=== PATIENT | female | born 1990 | race Caucasian/White ===

== ENCOUNTER 2023-01-09 09:43 | Outpatient (CLI) | payer OTHER ==
[2023-01-09 14:25] LABS: BASOPHILS # (AUTO) 0.1 10^3/uL (0.0-0.1); EOSINOPHILS # (AUTO) 0.1 10^3/uL (0.0-0.7); EOSINOPHILS % (AUTO) 2.2 %; HCT - HEMATOCRIT 40.6 % (37.0-47.0); HGB - HEMOGLOBIN 13.5 g/dL (12.0-16.0); LYMPHOCYTES # (AUTO) 1.7 10^3/uL (1.5-3.5); LYMPHOCYTES % (AUTO) 34.6 %; MEAN CORPUSCULAR HEMOGLOBIN 32.6 pg (27.0-31.0); MEAN CORPUSCULAR HGB CONC 33.3 g/dL (32.0-36.0); MEAN CORPUSCULAR VOLUME 98.1 fL (81.0-99.0); MEAN PLATELET VOLUME 9.3 fL (7.9-10.8); MONOCYTES # (AUTO) 0.5 10^3/uL (0.0-1.0); MONOCYTES % (AUTO) 9.8 %; NEUTROPHILS # (AUTO) 2.6 10^3/uL (1.5-6.6); NEUTROPHILS % (AUTO) 52.2 %; PLT - PLATELET COUNT 355 10^3/uL (130-450); RED BLOOD COUNT 4.14 10^6/uL (4.20-5.40); RED CELL DISTRIBUTION WIDTH 12.7 % (12.0-15.0); WHITE BLOOD COUNT 4.9 x10^3/uL (4.8-10.8)
[2023-01-09 14:51] LABS: ALBUMIN 4.6 g/dL (3.2-5.5); ALBUMIN/GLOBULIN RATIO 1.8 (1.0-2.2); ALKALINE PHOSPHATASE 65 IU/L (42-121); ALT ALANINE AMINOTRANSFERASE 37 IU/L (10-60); AST ASPARTATE AMINOTRANSFERASE 23 IU/L (10-42); BILIRUBIN,TOTAL 0.5 mg/dL (0.2-1.0); BUN - BLOOD UREA NITROGEN 12 mg/dL (6-20); CALCIUM 9.5 mg/dL (8.5-10.3); CARBON DIOXIDE - CO2 27 mmol/L (21-32); CHLORIDE 105 mmol/L (101-111); CHOL/HDL RATIO 2.7 (<4.4); CHOLESTEROL 146 mg/dL; CREATININE 0.7 mg/dL (0.6-1.3); GFR - MDRD 97 (>89); GLUCOSE 89 mg/dL (74-104); HDL CHOLESTEROL 55 mg/dL; LDL CHOLESTEROL,CALCULATED 74 mg/dL; LDL/HDL RATIO 1.3 (<4.4); POTASSIUM 4.3 mmol/L (3.5-4.5); SODIUM 136 mmol/L (135-145); TOTAL PROTEIN 7.1 g/dL (6.4-8.9); TRIGLYCERIDES 84 mg/dL (48-352); VLDL CHOLESTEROL 17 mg/dL
[2023-01-09 14:55] LABS: THYROID STIMULATING HORMONE 1.16 uIU/mL (0.34-5.60)
== END 2023-01-09 09:44 | disposition home or self-care (01) ==
LOC: LAB.S 09:43
PROVIDERS: ATTEND Nurse Practitioner Acute Care
DX: Z79.899 Other long term (current) drug therapy (principal); Z13.220 Encounter for screening for lipoid disorders; Z13.228 Encounter for screening for other metabolic disorders; Z13.0 Encounter for screening for diseases of the blood and blood-forming organs and certain disorders involving the immune mechanism
CPT/HCPCS: 36415; 80053; 80061; 83721; 84443; 85025

== ENCOUNTER 2024-01-14 08:00 | Outpatient (CLI) | payer OTHER ==
[2024-01-14 16:36] LABS: BILIRUBIN,URINE NEGATIVE (NEGATIVE); GLUCOSE, URINE (UA) NEGATIVE (NEGATIVE); KETONES,URINE (UA) NEGATIVE (NEGATIVE); LEUKOCYTE ESTERASE, URINE NEGATIVE (NEGATIVE); NITRITE,URINE NEGATIVE (NEGATIVE); OCCULT BLOOD,URINE NEGATIVE (NEGATIVE); PH,URINE 5.5 PH (5.0-7.5); PROTEIN,URINE NEGATIVE (NEGATIVE); UROBILINOGEN,URINE 0.2 (NORMAL) E.U./dL (NORMAL)
[2024-01-14 16:39] LABS: CLARITY,URINE CLOUDY (CLEAR)
[2024-01-14 16:49] LABS: AMORPHOUS SEDIMENT,UR Marked /LPF; BACTERIA,URINE None Seen /HPF (None Seen); RBC,URINE None Seen /HPF (0-5); SQUAMOUS EPITHELIAL CELL,UR NONE SEEN (<= Few); WBC,URINE 0-3 /HPF (0-5)
== END 2024-01-14 23:59 | disposition home or self-care (01) ==
LOC: LAB.WC 08:00
PROVIDERS: ATTEND Obstetrics & Gynecology
DX: Z34.00 Encounter for supervision of normal first pregnancy, unspecified trimester (principal)
CPT/HCPCS: 81001; 87086

== ENCOUNTER 2024-01-28 20:53 | Outpatient (CLI) | payer OTHER ==
--- NOTE | 2024-01-29 17:24 | Ultrasound Report ---
PROCEDURE: OB 1st Trimester INDICATIONS: POSITIVE TEST OUTSIDE/PRIOR DATING DATA: Last menstrual period (LMP): 11/07/2023. LMP-based estimated date of delivery (JACKELYN): 08/21/2024. First dating scan (date and location): 01/28/2024. Estimated date of delivery (JACKELYN) from first dating scan: 08/24/2024. TECHNIQUE: Real-time scanning was performed of the fetus and maternal pelvic organs, with image documentation. COMPARISON: None. FINDINGS: Uterus is anteverted. The cervix is closed. An intrauterine gestational sac contains a pole and yolk sac. [place]-rump length measures 32.4 mm corresponding to a 10 week 1 day +/- 6 day gestation. T here is detectable cardiac activity at a rate of 176 bpm. Normal yolk sac. Trace subchorionic hemorrhage is seen, presumably an implantation bleed. Ovaries are normal. No free fluid in the pelvis. IMPRESSION: A single living intrauterine with a gestational age by ultrasound of 10 weeks 1 day and son ographic due date of 08/24/2024, consistent with clinical dates. Closed cervix and trace subchorionic fluid. Reviewed by: Alethea Perry MD on 01/29/2024 5:23 PM PDT Approved by: Alethea Perry MD on 01/29/2024 5:23 PM PDT Station ID: [id number]
== END 2024-01-28 20:54 | disposition home or self-care (01) ==
LOC: DI 20:53
PROVIDERS: ATTEND Obstetrics & Gynecology
DX: Z34.01 Encounter for supervision of normal first pregnancy, first trimester (principal)

== ENCOUNTER 2024-02-14 15:42 | Outpatient (CLI) | payer OTHER ==
[2024-02-14 16:10] LABS: BASOPHILS % (AUTO) 0.5 %; EOSINOPHILS # (AUTO) 0.1 10^3/uL (0.0-0.7); EOSINOPHILS % (AUTO) 1.7 %; HCT - HEMATOCRIT 34.9 % (37.0-47.0); HGB - HEMOGLOBIN 12.2 g/dL (12.0-16.0); LYMPHOCYTES # (AUTO) 1.6 10^3/uL (1.5-3.5); LYMPHOCYTES % (AUTO) 24.3 %; MEAN CORPUSCULAR HEMOGLOBIN 32.4 pg (27.0-31.0); MEAN CORPUSCULAR VOLUME 92.8 fL (81.0-99.0); MEAN PLATELET VOLUME 8.7 fL (7.9-10.8); MONOCYTES # (AUTO) 0.5 10^3/uL (0.0-1.0); NEUTROPHILS # (AUTO) 4.3 10^3/uL (1.5-6.6); NEUTROPHILS % (AUTO) 66.3 %; PLT - PLATELET COUNT 298 10^3/uL (130-450); RED BLOOD COUNT 3.76 10^6/uL (4.20-5.40); RED CELL DISTRIBUTION WIDTH 11.9 % (12.0-15.0); WHITE BLOOD COUNT 6.4 x10^3/uL (4.8-10.8)
[2024-02-14 16:25] LABS: ALBUMIN 4.3 g/dL (3.2-5.5); ALBUMIN/GLOBULIN RATIO 1.5 (1.0-2.2); BILIRUBIN,TOTAL 0.3 mg/dL (0.2-1.0); CALCIUM 9.5 mg/dL (8.5-10.3); CREATININE 0.5 mg/dL (0.6-1.3); POTASSIUM 3.8 mmol/L (3.5-4.5); TOTAL PROTEIN 7.1 g/dL (6.4-8.9)
[2024-02-14 20:26] LABS: ESTIMATED AVERAGE GLUCOSE 77 mg/dL (70-100); HEMOGLOBIN A1c% 4.3 % (4.27-6.07)
[2024-02-14 22:12] LABS: CHLAMYDIA TRACHOMATIS DNA NEGATIVE (NEGATIVE); NEISSERIA GONORRHOEAE DNA NEGATIVE (NEGATIVE); TRICHOMONAS VAGINALIS DNA NEGATIVE (NEGATIVE)
[2024-02-15 05:12] LABS: HBsAG SCREEN Negative (Negative); HIV SCREEN 4TH GENERATION Non Reactive (Non Reactive)
[2024-02-15 09:09] LABS: RPR Non Reactive (Non Reactive); VARICELLA-ZOSTER AB IGG Reactive (Non Reactive)
[2024-02-16 03:38] LABS: HCV AB Non Reactive (Non Reactive)
== END 2024-02-14 15:43 | disposition home or self-care (01) ==
LOC: LAB 15:42
PROVIDERS: ATTEND Obstetrics & Gynecology
DX: Z34.00 Encounter for supervision of normal first pregnancy, unspecified trimester (principal); Z36.89 Encounter for other specified antenatal screening
CPT/HCPCS: 36415; 80053; 83036; 85025; 86592; 86762; 86787; 86803; 86850; 86900; 86901; 87340; 87389; 87491; 87591; 87661

== ENCOUNTER 2024-08-25 20:06 | Inpatient (IN) ==
[2024-08-25] MEDS ORDERED: METHYLERGONOVINE 0.2 MG/ML VIAL IM PRN (21:34)
[2024-08-25] MEDS ORDERED: SODIUM CHLORIDE FLUSH 0.9% 10 ML SYRINGE IVP PRN (21:34)
[2024-08-25] MEDS ORDERED: hydrALAZINE INJ 20 MG/ML VIAL IVP PRN ×2 (21:34)
[2024-08-25] MEDS ORDERED: NIFEdipine 10 MG CAPSULE PO PRN (21:34)
[2024-08-25] MEDS ORDERED: CARBOPROST TROMETHAMINE 250 MCG/ML VIAL IM PRN (21:34)
[2024-08-25] MEDS ORDERED: OXYTOCIN 10 UNIT/ML VIAL IM PRN (21:34)
[2024-08-25] MEDS ORDERED: LABETALOL 20 MG/4 ML SYRINGE IVP PRN ×3 (21:34)
--- NOTE | 2024-08-25 21:42 | HISTORY & PHYSICAL EXAMINATION ---
Admit History Smoking Status: Never smoker Meds/Allgy Home Medications Ambulatory Orders Medication Instructions Recorded Confirmed vits no.126-ferrous fum 1 tab PO QDAY 03/16/24 08/25/24 28 mg iron-folic acid 800 mcg tablet (Classic ) breast pump #1 ea 06/02/24 08/25/24 Allergies Allergies Allergy/AdvReac Type Severity Reaction Status Date / Time No Known Drug Allergies Allergy Verified 08/25/24 14:05 PFSH Active Problems All Active Problems (Updated 06/02/24 @ 22:38 by Jayde Aguilar, FABRICIO, MUSEUM HOST/HOSTESS) Supervision of normal first in third trimester (Acute) Dysplasia of cervix, low grade (ROSLYN 1) (Acute) Social History Social History (Updated 03/16/24 @ 09:28 by Monisha De LPN) Smoking Status: Never smoker Second hand tobacco smoke exposure: No Do you dip or chew tobacco?: No Do you vape?: No ETOH Use: None Substance Use: denies use Plan for Labor Plan For Labor I expect patient to be DC'd or transferred within 96 hours.: Yes Plan for Labor: Reny is a 33yo @ 40.4wks gestation by LMP c/w 10wk U/S who presents to [facility] for medical induction of labor with pre-induction cervical ripening secondary to new onset gestational hypertension. She has been a patient of [facility] for the duration of her which has remained uncomplicated with the exception of this new diagnosis. She had received consistent care. She denies headaches, visual disturbances, RUQ or epigastric pain. She has felt occasional cramping throughout the day yesterday and today but denies consistent contractions. She denies vaginal bleeding or leakage of fluid and reports +FM. Upon arrival cervix is 2-3/70/-3 and vertex with intact membranes. She will be admitted for observation to [facility] with cervical ripening balloon placement. She is supported by her Daniele today. Dating criteria: LMP: 11/15/2023 JACKELYN by LMP: 08/21/2024 US:01/28/24 @ 10+1 c/w LMP (08/24/24) Final JACKELYN: 08/21/2024 FOB: Daniele Sex: IT's A BOY!!! Allergies: NKDA RX: [facility] Hx: Hx of ROSLYN-1 FMHX: No significant Surgical: No significant Social: Daniele. No ETOH or IVDA. Never smoker. Pre- Weight: 158 BMI: 26.52 Blood type: O+ Antibody: Negative CBC: H/H 12.2/34.9 plt 298 RUB:immune VZV:immune HBsAg: Negative HepC: NR RPR/AB-EIA:NR HIV:NR PAP:02/24/2023 ASCUS HPV+, COLPO CIN1, DUE Nov03/2024- wants to complete GC/CT: Negative HSV: denies self and partner Genetic testing: NIPT- Negative Covid:decline Flu:decline FAS:04/14/2024 Placenta:posterior Cord: 3VC YANETH: 16.4cm EFW: 457g 50gm OGCT: 116 a1c 9/27- 4.3 TDAP: 06/02/2024 Breast Pump: 06/02/2024 GBS: negative Delivery plan: Desires epidural for pain management, hoping to labor some without, . MOD: Anticipate Physical exam: Normocephalic, atraumatic Heart RRR w/o M/G/R Lungs CTAB Abdomen gravid, soft, nontender FHR baseline 150s, moderate variability, + accels, no decels Contractions palpate mild intermittently with soft resting tone SVE 2-3/70/-3 and vertex with intact membranes. Cervical ripening balloon placed with 80cc in uterine balloon and 80cc vaginal balloon Pt tolerated placement well. Bilateral LE's trace edema. Mood is good. Assessment: 33yo @ 40.4wks gestation by LMP c/w 10wk U/S Gestational hypertension FHR Category I GBS negative Plan: Admit to [facility] for observation. Cervical ripening balloon x 12hrs. AROM vs misoprostol in 12hrs or sooner with spontaneous expulsion. Intermittent FHR monitoring with NST q 4hrs. Jaccuzi PRN. Nitrous oxide PRN. Anticipate .
--- OUTSIDE RECORDS SUMMARY | 2024-08-25 21:43 | EXTERNAL MEDICAL SUMMARY RPT | Continuity of Care Document ---
Author Organization [facility] Address [address] [place] [phone] Phone Problems date description facility 2024-06-03 00:02 [facility] 2024-06-03 00:02 Encounter for superv ision of normal first , third trimester [facility] 2024-07-23 10:25 Encounter for test, r esult positive [facility] 2024-07-23 10:25 Encounter for superv ision of normal first , unspecified trimester [facility] 2024-08-06 15:24 Encounter for superv ision of normal first , third trimester [facility] 2024-08-06 15:24 Encounter for screeni ng for Streptococcus B [facility] 2024-08-07 00:02 Encounter for superv ision of normal first , third trimester [facility] 2024-08-07 00:02 Encounter for screeni ng for Streptococcus B [facility] 2024-08-07 00:04 Encounter for superv ision of normal first , third trimester [facility] 2024-08-07 00:04 Encounter for screeni ng for Streptococcus B [facility] 2024-08-10 08:39 Encounter for superv ision of normal first , third trimester [facility] Results/Labs test date facility value unit notes Result panel 1 GROUP B STREP PCR 2024-08-06 14:00 [employer] NEGATIVE (missing) (missing) Social History date description facility
[2024-08-25 22:32] LABS: BASOPHILS # (AUTO) 0.1 10^3/uL (0.0-0.1); BASOPHILS % (AUTO) 0.5 %; EOSINOPHILS # (AUTO) 0.2 10^3/uL (0.0-0.7); EOSINOPHILS % (AUTO) 1.6 %; HGB - HEMOGLOBIN 12.4 g/dL (12.0-16.0); LYMPHOCYTES # (AUTO) 1.5 10^3/uL (1.5-3.5); LYMPHOCYTES % (AUTO) 16.5 %; MEAN CORPUSCULAR HEMOGLOBIN 33.1 pg (27.0-31.0); MEAN CORPUSCULAR HGB CONC 34.4 g/dL (32.0-36.0); MEAN PLATELET VOLUME 9.5 fL (7.9-10.8); MONOCYTES # (AUTO) 0.9 10^3/uL (0.0-1.0); MONOCYTES % (AUTO) 9.6 %; NEUTROPHILS # (AUTO) 6.7 10^3/uL (1.5-6.6); NEUTROPHILS % (AUTO) 71.6 %; PLT - PLATELET COUNT 285 10^3/uL (130-450); RED BLOOD COUNT 3.75 10^6/uL (4.20-5.40); RED CELL DISTRIBUTION WIDTH 12.5 % (12.0-15.0); WHITE BLOOD COUNT 9.3 x10^3/uL (4.8-10.8)
[2024-08-25 22:38] LABS: CREATININE,URINE 54.2 mg/dL; PROTEIN/CREATININE RATIO,URINE 0.2 (<=0.2)
[2024-08-25 22:42] LABS: ALBUMIN/GLOBULIN RATIO 1.4 (1.0-2.2); BILIRUBIN,TOTAL 0.3 mg/dL (0.2-1.0); CALCIUM 9.5 mg/dL (8.5-10.3); CREATININE 0.8 mg/dL (0.6-1.3); POTASSIUM 3.7 mmol/L (3.5-4.5); TOTAL PROTEIN 6.9 g/dL (6.4-8.9)
[2024-08-26] MEDS: LACTATED RINGERS 1,000 ML IV PRN ×2 (04:25→05:04)
[2024-08-26] MEDS: SODIUM CHLORIDE FLUSH 0.9% 10 ML SYRINGE IVP SCH (05:05)
[2024-08-26] MEDS ORDERED: LIDOCAINE 2%-EPI 1:100000 20 ML MDV ONE (05:23)
[2024-08-26] MEDS ORDERED: ROPIVACAINE 0.2% 200 MG/100 ML BAG EP ONE (05:23)
[2024-08-26] MEDS ORDERED: NALBUPHINE 10 MG/ML AMP IVP PRN (06:30)
[2024-08-26] MEDS ORDERED: LACTATED RINGERS 500 ML IV ONE (06:30)
[2024-08-26] MEDS ORDERED: ePHEDrine 50 MG/ML VIAL IVP PRN (06:30)
[2024-08-26] MEDS ORDERED: METOCLOPRAMIDE 10 MG/2 ML VIAL IVP PRN (06:30)
[2024-08-26] MEDS ORDERED: NALOXONE 0.4 MG/ML VIAL IVP PRN (06:30)
[2024-08-26] MEDS ORDERED: diphenhydrAMINE INJ 50 MG/ML VIAL IVP PRN (06:30)
--- NOTE | 2024-08-26 06:31 | ANESTHESIA PROCEDURE NOTE ---
Pre-Anesthesia VS, & Labs Diagnosis Surgical Diagnosis:: 40.4 weeks Procedure Procedure: placement of labor epidural Vitals Vital Signs: Pulse Resp 81 16 08/25/24 21:41 08/25/24 21:41 Height (in): 5 ft 5 in Weight (kg): 92 kg Body Mass Index: 33.7 BMI Classification: Obese NPO Last Fluid Intake: taking clears Is Patient ?: Yes Estimated Due Date:: 08/26/24 Lab Results Current Lab Results: Laboratory Tests 08/25/24 22:19: WBC 9.3, RBC 3.75 L, Hgb 12.4, Hct 36.0 L, MCV 96.0, MCH 33.1 H, MCHC 34.4, RDW 12.5, Plt Count 285, MPV 9.5, Neut # (Auto) 6.7 H, Lymph # (Auto) 1.5, Bland # (Auto) 0.9, Eos # (Auto) 0.2, Baso # (Auto) 0.1, Absolute Nucleated RBC 0.00, Nucleated RBC % 0.0, Sodium 137, Potassium 3.7, Chloride 104, Carbon Dioxide 24, Anion Gap 9.0, BUN 11, Creatinine 0.8, Estimated GFR (MDRD) 83 L, Glucose 83, Calcium 9.5, Total Bilirubin 0.3, AST 14, ALT 11, Alkaline Phosphatase 117, Total Protein 6.9, Albumin 4.0, Globulin 2.9, Albumin/Globulin Ratio 1.4, Blood Type O POSITIVE, Antibody Screen NEGATIVE Lab results reviewed: Yes 08/25/24 22:19 08/25/24 22:19 Meds/Allgy Home Medications Ambulatory Orders Medication Instructions Recorded Confirmed vits no.126-ferrous fum 1 tab PO QDAY 03/16/24 08/25/24 28 mg iron-folic acid 800 mcg tablet (Classic ) breast pump #1 ea 06/02/24 08/25/24 Allergies Allergies Allergy/AdvReac Type Severity Reaction Status Date / Time No Known Drug Allergies Allergy Verified 08/25/24 14:05 PFSH Active Problems All Active Problems (Updated 06/02/24 @ 22:38 by Jayde Aguilar, CNM, CAR EXAMINER) Supervision of normal first in third trimester (Acute) Dysplasia of cervix, low grade (ROSLYN 1) (Acute) Social History Social History (Updated 03/16/24 @ 09:28 by Monisha De LPN) Smoking Status: Never smoker Second hand tobacco smoke exposure: No Do you dip or chew tobacco?: No Do you vape?: No ETOH Use: None Substance Use: denies use Anesthesia Exam (Expanded) Exam General: Alert and Mild distress Dental: WNL Mouth Openin Fingerbreadth Neck Mobility: Normal Mallampati classification: II Thyromental Distance: 4-6 cm Plan Plan Anesthesia Type: Epidural Consent for Procedure(s) Verified and Reviewed: Yes Code Status: Attempt Resuscitation ASA Classification ASA classification: 2-Mild systemic disease Is this case an emergency?: No
--- NOTE | 2024-08-26 06:41 | PROVIDER PROGRESS NOTE ---
Labor Progress Note Labor Progress Note Labor Progress Note/Additional Text: S: Feeling improved after epidural placement. She was not able to get much rest last night due to increasing intensity of contractions. She still has quite a bit of movement in her lower extremeties and was able to feel the cervical exam but is hoping with a little more time the epidural will improve this. She is no longer feeling discomfort with contractions. O: Cervical ripening balloon spontaneously expelled after 2 hours of placement and immediately followed by SROM which was noted to be a moderate amount of clear fluid. FHR baseline 140s, moderate variability, + accels, no decels Contractions palpate strong every 4-5 minutes with soft resting tone SVE 6-7/90/-1, Vertex Continues to leak clear amniotic fluid. Pre-eclampsia labs neg/WNL A: 33yo @ 40.5wks gestation by LMP c/w 10wk U/S Gestational hypertension Active labor FHR Category I GBS negative P: Continue expectant management. Maintain epidural for pain management. Rotation in bed on peanut ball. Continuous monitoring. Anticipate .
--- NOTE | 2024-08-26 11:15 | PROVIDER PROGRESS NOTE ---
Labor Progress Note Labor Progress Note Labor Progress Note/Additional Text: S: Pt comfortable with epidural. She has been able to rest for a couple of hours which she needed. She states the epidural is continuing to work well for her. She denies GAYTAN, visual disturbances, RUQ or epigastric pain. Her is marquez pportive at the bedside O: FHR baseline 150, moderate variability, + accels, no decels Contractions palpate moderate every 5 minutes with soft resting tone SVE 7/90/-1 and vertex. Cervix mildly edematous. A: 33yo @ 40.5wks gestation Active labor Gestational HTN FHR Category I GBS negative P: Initiate pitocin for augmentation of labor with titration per protocol. Continuous monitoring. Benadryl IVP for cervical edema Encouraged position changes in bed on peanut ball. Anticipate .
[2024-08-26] MEDS: diphenhydrAMINE INJ 50 MG/ML VIAL IVP ONE (11:24)
[2024-08-26] MEDS: OXYTOCIN/SODIUM CHLORIDE 500 ML IV SCH (11:30)
--- NOTE | 2024-08-26 11:53 | PHARMACY PROGRESS NOTE ---
Best Possible Medication History Admit Date and Time: 08/25/24 2134 Home Medications Medication Instructions Recorded Confirmed Type vits no.126-ferrous fum 1 tab PO QDAY 03/16/24 08/26/24 History 28 mg iron-folic acid 800 mcg tablet (Classic ) breast pump #1 ea 06/02/24 08/25/24 Rx Processed by: Pharmacy (Medication reconciliation completed by Human Services AssistantAdin) Medications reviewed in ED?: No Medication History completed: Yes Patient Interview: Completed Secondary Source(s): Insurance records [facility] Statement: As the person ultimately responsible for medication therapy, providers are able to order a medication from an existing home medication list in [facility] via the "Reconcile Routine" prior to Confirmation of that medication by arch support maker. Such practice is discouraged except when the physician, in their clinical judgment, deems that a medical need exists for a medication without regard to previous use.
[2024-08-26] MEDS: ROPIVACAINE 0.2% 200 MG/100 ML BAG EP PRN (13:24)
[2024-08-26] MEDS: ONDANSETRON 4 MG/2 ML VIAL IVP PRN (15:39)
[2024-08-26] MEDS: lidocaine 1% 20 ML MDV ID PRN (19:00)
[2024-08-26] MEDS: TRANEXAMIC ACID IN NACL 1,000 MG/100 ML BAG IV PRN (19:20)
[2024-08-26] MEDS: miSOPROStoL 200 MCG TABLET BC PRN (19:35)
[2024-08-26] MEDS: OXYTOCIN/SODIUM CHLORIDE 500 ML IV PRN (20:11)
[2024-08-26] MEDS: ACETAMINOPHEN 500 MG TABLET PO PRN (21:14)
[2024-08-26] MEDS ORDERED: SIMETHICONE CHEW 80 MG TABLET PO PRN (21:14)
[2024-08-26] MEDS ORDERED: OXYTOCIN/SODIUM CHLORIDE 500 ML IV PRN (21:14)
[2024-08-26] MEDS: IBUPROFEN 800 MG TABLET PO PRN (21:14)
--- NOTE | 2024-08-26 21:23 | DELIVERY NOTE ---
Delivery Note Delivery Comments (Free Text/Narrative) Delivery Comments (Free Text/Narrative): Labor: This 33yo @ 40.5wks gestation by LMP c/w first trimester ultrasound presented to [facility] on 08/25/2024 for medical induction of labor secondary to gestational hypertension. Cervix was 2/70/-2 and vertex. Maria cervical ripening balloon placed and was spontaneously expelled after 2 hours and was following shortly by SROM which occurred on 08/26/2023 @ 2320 and was noted to be a moderate amount of clear fluid. FHR demonstrated Category I pattern throughout labor. Normal labor course. Epidural placed per maternal request. Pitocin initiated for augmentation of labor with a maximum infusion rate of 16mU/min. She progressed to c/c/0 at 1548. : Normal SVB of viable male infant on 08/26/2024 @ 1913. No nuchal cord. 40 second body dystocia. The was placed on maternal abdomen, stimulated, dr ied, and placed skin to skin. 's were 5/9 at 1 and 5 min respectively. Pitocin administered via IV for hemostasis. The umbilical cord was allowed to stop pulsating at which time it was doubly clamped by CNM and cut by FOB. Cord blood was obtained. 3VC. Fundal massage and gentle cord traction applied for active management of the third stage. Placenta delivered spontaneously and intact at 1923. Pt was noted to have increased rate of vaginal bleeding initially and in addition to pitocin she received 800mcg rectal misoprostol and TXA for management. Rate of bleeding improved following treatment. QBL 954mL. Fourth stage: Uterine fundus firm and there is no excessive bleeding. The perineum, vagina, and cervix were inspected and found to have a 2nd degree vaginal laceration which was repaired using a 2-[address]-1 needle, in standard fashion and under sterile conditions. In additional she was noted to have a minor right periurethral laceration which was repaired using a 4-0 vicryl on an SH needle in standard fashion under sterile conditions. Vaginal and rectal examination following repair was performed. Tissues well approximated. initiated. Both mother and baby were left in stable condition.
--- OUTSIDE RECORDS SUMMARY | 2024-08-26 23:23 | EXTERNAL MEDICAL SUMMARY RPT | Continuity of Care Document ---
Author Organization [facility] Address [address] [place] [phone] Phone Problems date description facility 2024-06-03 00:02 Encounter for immunization id [facility] 2024-06-03 00:02 Encounter for superv ision of normal first , [facility] 2024-07-23 10:25 Encounter for test, r esult positive [facility] 2024-07-23 10:25 Encounter for superv ision of normal first , unspecified trimester [facility] 2024-08-06 15:24 Encounter for superv ision of normal first , third trimester [facility] 2024-08-06 15:24 Encounter for screeni ng for Streptococcus B [facility] 2024-08-07 00:02 Encounter for superv ision of normal first , third trimester [facility] 2024-08-07 00:02 Encounter for screeni ng for Streptococcus B [facility] 2024-08-07 00:04 Encounter for superv ision of normal first , third trimester [facility] 2024-08-07 00:04 Encounter for screeni ng for Streptococcus B [facility] 2024-08-10 08:39 Encounter for superv ision of normal first , third trimester [facility] Results/Labs test date facility value unit notes Result panel 1 GROUP B STREP PCR 2024-08-06 14:00 [email or web address] NEGATIVE (missing) (missing) Result panel 2 PROTEIN/CREATININE RATIO,URINE 2024-08-25 22:00 [email or web address] 0.2 (missing) (missing) TOTAL PROTEIN,URINE TIMED 2024-08-25 22:00 [facility] 10 mg/dl As of November 2022 testing method has changed, this may include reference ranges. CREATININE,URINE 2024-08-25 22:00 [facility] 54.2 mg/dl As of November 2022 testing method has changed, this may include reference ranges. Result panel 3 NUCLEATED RED BLOOD CELLS AUTO 2024-08-25 22:19 [facility] 0.0 /100wbc (missing) NRBC ABSOLUTE COUNT (AUTO) 2024-08-25 22:19 [facility] 0.00 x10 3/ul (missing) BASOPHILS # (AUTO) 2024-08-25 22:19 [facility] 0.1 10 3/ul (missing) EOSINOPHILS # (AUTO) 2024-08-25 22:19 [facility] 0.2 10 3/ul (missing) BILIRUBIN,TOTAL 2024-08-25:19 [facility] 0.3 mg /dl As of November 2022 testing method has changed, this may include reference ranges. CREATININE 2024-08-25: [facility] 0.8 mg/dl As of November 2022 testing method has changed, this may include reference ranges. MONOCYTES # (AUTO) 2024-08-25:19 [facility] 0.9 10 3/ul (missing) ALBUMIN/GLOBULIN RATIO 2024-08-25 22:19 [facility] 1.4 (missing) (missing) LYMPHOCYTES # (AUTO) 2024-08-25 22:19 [facility] 1.5 10 3/ul (missing) CHLORIDE 2024-08-25 22:19 [facility] 104 mmol/l As of November 2022 testing method has changed, this may include reference ranges. ALT ALANINE AMINOTRANSFERASE 2024-08-25: [facility] 11 iu/l As of November 2022 testing method has changed, this may include reference ranges. BUN - BLOOD UREA NITROGEN 2024-08-25 22:19 [facility] 11 mg/dl As of Nov testing method has changed, this may include reference ranges. ALKALINE PHOSPHATASE 2024-08-25: [facility] 117 iu/l As of November 2022 testing method has changed, this may include reference ranges. HGB - HEMOGLOBIN 2024-08-25:19 [facility] 12.4 g /dl (missing) RED CELL DISTRIBUTION WIDTH 2024-08-25 22:19 [email or web address] 12.5 % (missing) SODIUM 2024-08-25:19 [facility] 137 mmol/l As of November 2022 testing method has changed, this may include reference ranges. AST ASPARTATE AMINOTRANSFERASE 2024-08-25 22:19 [email or web address] 14 iu/l As of November 2022 testing method has changed, this may include reference ranges. GLOBULIN 2024-08-25 22:19 [email or web address] 2.9 g/dl (missing) CARBON DIOXIDE - CO2 2024-08-25 22:19 [email or web address] 24 mmol/l As of November 2022 testing method has changed, this may include reference ranges. PLT - PLATELET COUNT 2024-08-25 22:19 [email or web address] 285 10 3/ul (missing) POTASSIUM 2024-08-25 22:19 [email or web address] 3.7 mmol/l As of November 2022 testing method has changed, this may include reference ranges. RED BLOOD COUNT 2024-08-25:19 [email or web address] 3.75 10 6/ul (missing) MEAN CORPUSCULAR HEMOGLOBIN 2024-08-25 22:19 [email or web address] 33.1 pg (missing) MEAN CORPUSCULAR HGB CONC 2024-08-25 22:19 [facility] 34.4 g/dl (missing) HCT - HEMATOCRIT 2024-08-25 22:19 [email or web address] 36.0 % (missing) ALBUMIN 2024-08-25 22:19 [email or web address] 4.0 g/dl As of November 2022 testing method has changed, this may include reference ranges. NEUTROPHILS # (AUTO) 2024-08-25 22:19 [email or web address] 6.7 10 3/ul (missing) TOTAL PROTEIN 2024-08-25 22:19 [email or web address] 6.9 g/dl As of November 2022 testing method has changed, this may include reference ranges. GFR - MDRD 2024-08-25 22:19 [email or web address] 83 (zaida lawrence) Social History date description facility
[2024-08-27] MEDS: DOCUSATE SODIUM 100 MG CAPSULE PO SCH (13:07)
[2024-08-27] MEDS: HYDROCORTISONE 1% CREAM 28 GM TUBE TOP PRN (13:07)
[2024-08-27 21:50] VITALS: O2SAT 97
--- NOTE | 2024-08-27 23:53 | PROVIDER PROGRESS NOTE ---
Subjective Prog Note Date Prog Note Date: 08/27/24 Prog Note Time: 11:00 Subjective Subjective: S: Bonding well with baby. without difficulty. Bleeding decreased and is light. Pain is well controlled with oral medications. She is urinating without difficulty. Has not yet had BM. is supportive at the bedside. O: Heart RRR w/o M/G/R, lungs CTAB, abdomen soft and nontender with fundus firm at U, perineum intact, repair with mild edema, light lochia rubra, bilateral LE's trace edema A: 33yo -->P1 PPD#1 s/p TSVD viable male Normal recovery P: Continue routine care and medications. Evaluate for discharge home tomorrow Current Medications Current Medications Current Medications: Current Medications Generic Name Dose Route Start Last Admin Trade Name Freq PRN Reason Stop Dose Admin Acetaminophen 1,000 mg 08/26/24 21:14 08/27/24 21:21 Acetaminophen 500 Mg Tablet PO 1,000 mg Q8HR PRN Administration Mild Pain or Fever>38C(100.4F) Carboprost Tromethamine 250 mcg 08/25/24 21:34 Carboprost Tromethamine 250 Mcg/Ml Vial IM 08/30/24 21:34 Q15M PRN Step 4: Hemorrhage protocol Diphenhydramine HCl 12.5 - 25 mg 08/26/24 06:30 Diphenhydramine Inj 50 Mg/Ml Vial IVP Q6HR PRN ITCHING Docusate Sodium 100 mg 08/27/24 09:00 08/27/24 21:20 Docusate Sodium 100 Mg Capsule PO 100 mg BID ELIE Administration Ephedrine Sulfate 5 mg 08/26/24 06:30 Ephedrine 50 Mg/Ml Vial IVP Q5M PRN For SBP<100;give until SBP>100 Hydralazine HCl 5 - 20 mg 08/25/24 21:34 Hydralazine Inj 20 Mg/Ml Vial IVP Q20M PRN SBP >160 or DBP >110 Protocol Hydralazine HCl 10 mg 08/25/24 21:34 Hydralazine Inj 20 Mg/Ml Vial IVP 08/30/24 21:34 .ONCE PRN Step 9 of Labetalol protocol Protocol Hydrocortisone 1 applic 08/26/24 21:14 08/27/24 13:07 Hydrocortisone 1% Cream 28 Gm Tube TOP 1 tube QID PRN Administration PERINEAL REPAIR Lactated Ringer's 1,000 mls @ 100 mls/hr 08/25/24 21:34 08/26/24 05:04 Lr IV 100 mls/hr .Q10H PRN Administration Save for active labor Oxytocin/Sodium Chloride 500 mls @ 999 mls/hr 08/25/24 21:34 08/26/24 20:11 Pitocin/Sodium Chloride IV 08/30/24 21:36 95 milliunit/min PRN PRN 95 mls/hr POST- HEMORR PREVENTION Administration Protocol 999 MILLIUNIT/MIN Tranexamic Acid 1,000 mg in 100 mls @ 600 mls/hr 08/25/24 21:34 08/26/24 19:20 Tranexamic 1,000 Mg/100ml-Nacl IV 08/30/24 21:34 600 mls/hr .ONCE PRN Administration EBL >1200mL and within 3hr Ropivacaine 200 mg in 100 mls @ 0 mls/hr 08/26/24 06:30 08/26/24 13:24 Naropin 0.2% EP 10 mls/hr PRN PRN Administration PAIN Protocol Per Protocol Oxytocin/Sodium Chloride 500 mls @ 2 mls/hr 08/26/24 11:09 08/26/24 17:35 Pitocin/Sodium Chloride IV 16 milliunit/min TITR ELIE 16 mls/hr Titration Protocol 2 MILLIUNIT/MIN Oxytocin/Sodium Chloride 500 mls @ 999 mls/hr 08/26/24 21:14 Pitocin/Sodium Chloride IV PRN PRN POST- HEMORR PREVENTION Protocol 999 MILLIUNIT/MIN Ibuprofen 800 mg 08/26/24 21:14 08/27/24 21:20 Ibuprofen 800 Mg Tablet PO 800 mg Q8HR PRN Administration Moderate Pain (Level 4-6) Labetalol HCl 20 - 80 mg 08/25/24 21:34 Labetalol 20 Mg/4 Ml Syringe IVP Q10M PRN SBP >160 or DBP >110 Protocol Labetalol HCl 20 mg 08/25/24 21:34 Labetalol 20 Mg/4 Ml Syringe IVP 08/30/24 21:34 .ONCE PRN Step 9 of nifedipine protocol Protocol Labetalol HCl 40 mg 08/25/24 21:34 Labetalol 20 Mg/4 Ml Syringe IVP 08/30/24 21:34 .ONCE PRN Step 9 of hydrALAZine protocol Protocol Lidocaine HCl 20 ml 08/25/24 21:34 08/26/24 19:00 Lidocaine 1% 20 Ml Mdv ID 08/30/24 21:34 20 ml .ONCE PRN Administration PERINEAL REPAIR Methylergonovine Maleate 0.2 mg 08/25/24 21:34 Methylergonovine 0.2 Mg/Ml Vial IM 08/30/24 21:34 .ONCE PRN Step 2: Hemorrhage protocol Metoclopramide HCl 10 mg 08/26/24 06:30 Metoclopramide 10 Mg/2 Ml Vial IVP Q6HR PRN Nausea / Vomiting Misoprostol 800 mcg 08/25/24 21:34 08/26/24 19:35 Misoprostol 200 Mcg Tablet BC 08/30/24 21:34 800 mcg .ONCE PRN Administration Step 3: Hemorrhage protocol Nalbuphine HCl 2.5 - 5 mg 08/26/24 06:30 Nalbuphine 10 Mg/Ml Amp IVP Q4H PRN ITCHING Naloxone HCl 0.1 mg 08/26/24 06:30 Naloxone 0.4 Mg/Ml Vial IVP Q2M PRN RR<8 Nifedipine 10 - 20 mg 08/25/24 21:34 Nifedipine 10 Mg Capsule PO Q20M PRN SBP >160 or DBP >110 Protocol Ondansetron HCl 4 mg 08/26/24 06:30 08/26/24 15:39 Ondansetron 4 Mg/2 Ml Vial IVP 4 mg Q6HR PRN Administration Nausea / Vomiting Oxytocin 10 unit 08/25/24 21:34 Oxytocin 10 Unit/Ml Vial IM 08/30/24 21:34 .ONCE PRN Step one: If no IV access Simethicone 80 mg 08/26/24 21:14 Simethicone Chew 80 Mg Tablet PO TID PRN Gas Sodium Chloride 10 ml 08/26/24 01:00 08/27/24 01:49 Sodium Chloride Flush 0.9% 10 Ml Syringe IVP Not Given 0100,0900,1700 ELIE Sodium Chloride 10 ml 08/25/24 21:34 Sodium Chloride Flush 0.9% 10 Ml Syringe IVP PRN PRN NEEDED PER PROVIDER ORDERS Witch Denisse/Glycerin 1 pad 08/26/24 21:14 Witch Denisse/Glycerin 1 Pad TOP PRN PRN PERINEAL REPAIR Objective Vital Signs/Intake & Output Vital Signs: Vital Signs x48h Temp Pulse Resp BP Pulse Ox 08/27/24 20:30 96.8 F L 83 16 114/70 97 Intake & Output: Intake & Output 08/24/24 08/25/24 08/26/24 08/27/24 23:59 23:59 23:59 23:59 Intake Total 1051 / 1051 Output Total 3154 / 3154 950 / 950 Balance -2103 / -2103 -950 / -950 Weight (kg) 204 lb 202 lb 13.204 oz Lab Results 08/25/24 22:19 08/25/24 22:19
[2024-08-28 07:44] VITALS: TEMP 98.6
--- NOTE | 2024-08-28 09:04 | Discharge Summary ---
Discharge Summary HOSPITAL COURSE Hospital Course: Brief History: She is a patient of [facility] who presented on 08/25/2024 for medical induction of labor secondary to gestational hypertension. Cervix was 2/70/-2 and vertex with intact membranes. Cervical ripening balloon was placed and spontaneously expelled after 2 hours of placement and occurred in correlation with SROM at 2320. Epidural was placed per maternal request. She spontaneously progressed to deliver a viable male infant on 08/26/2024 @ 1319. Perineum was noted to have a 2nd degree laceration which was repaired using a 2- [address]-1 needle in standard fashion and under sterile conditions. Apgars were 5/9 at 1 and 5 minutes respectively. QBL 954 mL. She has been doing well in her course. She is ambulating and tolerating a regular diet. She is urinating without difficulty and her lochia is normal. Her pain is well controlled with oral medications. She will be discharged home today on day #2 with instructions to continue taking her vitamin while and to continue taking Ibuprofen and Tylenol over the counter as needed for pain management. She intends to follow up with myself at [facility] in 1 week for routine visit or sooner if needed. She has been given precautions to call if she has any worsening fevers, chills, abdominal pain, increased vaginal bleeding or foul smelling vaginal lochia. Physical Exam: Normocephalic, atraumatic. Heart RRR w/o M/G/R, lungs CTAB, abdomen soft and nontender with fundus firm at U-1, perineum intact, light lochia rubra, bilateral LE's no edema. Mood is good. ALLERGIES Allergies Allergy/AdvReac Type Severity Reaction Status Date / Time No Known Drug Allergies Allergy Verified 08/28/24 07:33 MEDICATIONS Ambulatory Orders Medication Instructions Recorded Confirmed vits no.126-ferrous fum 1 tab PO QDAY 03/16/24 08/26/24 28 mg iron-folic acid 800 mcg tablet (Classic ) breast pump #1 ea 06/02/24 08/25/24 PHYSICAL EXAM AT DISCHARGE Vital Signs: Vital Signs x48h Temp Pulse Resp BP Pulse Ox 08/28/24 07:40 98.6 F 86 15 120/89 97 08/28/24 04:31 98.2 F 73 16 115/76 97 LABS 08/25/24 22:19 08/25/24 22:19 Discharge Plan Discharge Patient Disposition: 01 Home, Self Care Prescriptions: Continued (DME) breast pump Device See Rx Instructions .Route Qty: 1 0RF Rx Instructions: As directed Classic 28 mg iron- 800 mcg tablet 1 tab PO QDAY Print Language: Wolof Patient Instructions: Vaginal After, Self Care Follow-up Care: Jayde Aguilar CNM, TRAVELING CONSTRUCTION SUPERINTENDENT [Provider Admit Priv/Credential] -
[2024-08-28] MEDS: WITCH HAZEL/GLYCERIN 1 PAD TOP PRN (12:52)
[2024-08-28 15:12] VITALS: BP 128/79
--- NOTE | 2024-08-28 15:15 | Labor Flowsheet ---
Labor Flowsheet Datetime Report Generated by CPN: 08/28/2024 15:15 Datetime: 08/27/2024 08:04 VITAL SIGNS NBP Sys/Adelina/Mean (mmHg): 114 : 76 : 86 Pulse: 95 SpO2 (%): 100 Datetime: 08/26/2024 19:45 Comments: 107ml measured on laps Datetime: 08/26/2024 19:30 Stage of : Recovery Datetime: 08/26/2024 19:00 UTERINE ACTIVITY Monitor Mode: External Frequency (min): 1-3 Quality: Strong Duration (sec): 50-80 Pattern: Normal: <= 5 Contractions in 10 Minutes Resting Tone (Palpate): Relaxed ASSESSMENT A Monitor Mode: Telemetry FHR Baseline Rate : 160 Variability: Moderate 6-25 bpm Accelerations: 15X15 Decelerations: Early; Variable Datetime: 08/26/2024 18:47 Temperature (C): 38.2 Datetime: 08/26/2024 18:30 Pitocin Checklist: At Least 1 Acceleration of 15 bpm x 15 Seconds in 30 Minutes or Adequate Variabi lity; No More than 1 Late Deceleration Occurred in Past 30 Minutes; No More than 2 Variable Decelerat ions > 60 Seconds in Duration and decreasing >60 bpm in 30 minutes; No More than 5 Uterine Contractio ns in 10 Minutes for any 20 Minute Interval; Uterus Palpates Soft between Contractions FHR Baseline Changes: Tachycardia Datetime: 08/26/2024 15:48 VAGINAL EXAM Dilatation (cm): 10.0 Effacement (%): 100 Station: 0 I/O Interventions: Maria Discontinued Datetime: 08/26/2024 15:30 Monitor Interventions for UA: [place]way Adjusted Datetime: 08/26/2024 15:29 STAGE 2 Pushing: Coached on Pushing Pushing Position: Pushing with Contractions Datetime: 08/26/2024 15:20 Exam by: A.Lauren CNM Datetime: 08/26/2024 13:34 Patient Position/Activity: Right Lateral Patient Care Comments: peanut ball between knees Datetime: 08/26/2024 11:34 MEDICATIONS Pitocin (milliunits): Started @ 2 Datetime: 08/26/2024 08:15 Respirations: 16 Datetime: 08/26/2024 07:00 Contraction Comments: ctx's difficult to trace in this position Category: Category I Oxygen Method: Room Air Datetime: 08/26/2024 06:15 Communication Comments: Jayde Lauren CNM at bedside Datetime: 08/26/2024 06:04 Epidural Procedure: Completed Datetime: 08/26/2024 05:27 PROCEDURE TIME OUT Procedure Verify: Correct Patient Identity; Correct Side and Site are Marked; Accurate Procedure Co nsent Form; Agreement on Procedure to be Done; Correct Patient Position; Relevant Images and Results are Properly Labeled and Displayed; Addressed Need to Administer Antibiotics or Fluids for Irrigation ; Safety Precautions Based on Patient History or Medication Use ANESTHESIA Anesthesia Plans: Epidural Epidural Positioning: Sitting Anesthesia Comments: Edward Becerra FINAL OPERATIONS TECHNICIAN at bedside Datetime: 08/26/2024 05:14 COMMUNICATION Communication: Call/Page Placed to Provider Provider Notified (Name): Annette Aguilar CNM Notification Reason: Status Update Datetime: 08/26/2024 04:25 PATIENT CARE IV/Blood Work: IV Bolus Given ml @ 999 Datetime: 08/26/2024 04:12 PAIN Pain Scale: 6 Pain Presence: Intermittent Pain Type: Contraction Pain Location: Abdomen Pain Coping: Requesting Pain Medication or Epidural Pain Assessment Comments: pt requesting epidural Datetime: 08/26/2024 04:05 MATERNAL ASSESSMENT Level of Consciousness: Alert Datetime: 08/26/2024 02:16 Pain Goal: 4 Pain Relief Measures: Comfort Measures Comfort Measures: Breathing/Relaxation Datetime: 08/25/2024 23:45 Membranes Ruptured Date/Time: 08/25/2024 23:20 Amniotic Fluid Odor: Normal Cervical Ripening Agents Other: Cook catheter Datetime: 08/25/2024 23:20 Membrane Status: Ruptured Membranes Rupture Method: Spontaneous Amniotic Fluid Color: Clear Amniotic Fluid Amount: Moderate Vaginal Bleeding: None Cervix, Consistency: Soft Cervix, Position: Posterior Datetime: 08/25/2024 21:20 Cervical Ripening Agents: Maria Balloon; Other Medication Comments: Cooks catheter with 80ml/80ml placed by Jayde Aguilar CNM
== END 2024-08-28 14:15 | disposition home or self-care (01) | DRG 807 ==
LOC: WFO 20:06 → FBP 20:10
PROVIDERS: ADMIT Nurse Practitioner Obstetrics & Gynecology; ATTEND Nurse Practitioner Obstetrics & Gynecology